=== PATIENT | male | born 1985 | race Caucasian/White ===

== ENCOUNTER 2019-06-23 02:11 | Emergency (ER) | payer SELFPAY ==
[~2019-06-23] VITALS: Ht 182.9 cm; Wt 117.9 kg
[2019-06-23 02:14] VITALS: BP 163/62
--- NOTE | 2019-06-23 02:17 | NUR ---
PT AMBULATED TO BED 4 WITH STEADY GAIT
--- NOTE | 2019-06-23 02:20 | NUR ---
33 Y/O MALE C/O HAVING A HISTORY OF LEFT HAND/WRIST PAIN THAT IS INTERMITTENT X 5 YEARS. PT STATES PAIN IS A 10/10 IN THE LEFT HAND/WRIST AND STARTED LAST NIGHT AROUND 10PM. PT DENIES ANY TRAUMA, PAIN UNPROVOKED AND NONRADIATING. PT STATES PAIN FEELS LIKE PINS/NEEDLES/STABBING. RANGE OF MOTION IN TACT, HAND NON-TENDER TO PALP. +CMS. PT TOOK 800MG IBUPROFEN LAST NIGHT AROUND MIDNIGHT WITH NO RELIEF. DENIES N/V/D; SKIN IS PINK/WARM/DRY; AAOX4 WITH EVEN AND STEADY GAIT; PT DENIES ANY FEVER, CP, SOB, OR COUGH AT THIS TIME; VSS; PATIENT POSITIONED FOR COMFORT; HOB ELEVATED; BEDRAILS UP X1; BED DOWN AND LOCKED. MEDICAL HX: PT DENIES NKA
--- NOTE | 2019-06-23 02:26 | NUR ---
AT BEDSIDE EXAMINING PT
--- NOTE | 2019-06-23 02:38 | NUR ---
PLACED PT IN THUMB SPICA SPLINT, CHECK PMSC'S BRFORE AND AFTER WITH NO INCIDENT
[2019-06-23 02:46] VITALS: BP 163/62
--- NOTE | 2019-06-23 02:46 | NUR ---
Patient discharged with v/s stable. Written and verbal after care instructions given and explained. Patient alert, oriented and verbalized understanding of instructions. Ambulatory with steady gait. All questions addressed prior to discharge. ID band removed. Patient advised to follow up with PMD. Rx of GABAPENTIN/MOTRIN given. Patient educated on indication of medication including possible reaction and side effects. Opportunity to ask questions provided and answered.
== END 2019-06-23 02:46 | disposition home or self-care (01) ==
LOC: MED 02:11
DX: G56.02 Carpal tunnel syndrome, left upper limb (principal)
CPT/HCPCS: 99283

== ENCOUNTER 2019-06-24 00:50 | Emergency (ER) | payer SELFPAY ==
[~2019-06-24] VITALS: Ht 182.9 cm; Wt 95.3 kg
[2019-06-24 00:57] VITALS: BP 156/63
--- NOTE | 2019-06-24 01:02 | NUR ---
PT TAKEN TO CHAIR B
--- NOTE | 2019-06-24 01:03 | NUR ---
33/M SEEN IN ED YESTERDAY FOR LEFT HAND/WRIST PAIN. DENIES INJURY. PT DX WITH CARPAL TUNNEL SYNDROME. PT GIVEN SPLINT AND RX MEDICATIONS. PT UNABLE TO GET RELIEF OF PAIN.
[2019-06-24 01:04] VITALS: BP 156/63
--- NOTE | 2019-06-24 01:06 | NUR ---
Dr. Danielson examining patient.
[2019-06-24] MEDS ORDERED: KETOROLAC 60 MG/2 ML VIAL IM ONE (01:10)
--- NOTE | 2019-06-24 01:43 | NUR ---
PT DISCHARGED BY DR. FAIRCHILD WITH PRESCRIPTION OF NAPROSYN
== END 2019-06-24 01:43 | disposition home or self-care (01) ==
LOC: MED 00:50
DX: G56.02 Carpal tunnel syndrome, left upper limb (principal)
CPT/HCPCS: 96372; 99283; J1885